=== PATIENT | male | born 1995 | race Caucasian/White ===

== ENCOUNTER 2017-03-15 10:25 | Emergency (ER) | payer BC, OTHER ==
[~2017-03-15] VITALS: Ht 185.4 cm; Wt 101.6 kg
[2017-03-15] MEDS ORDERED: IBUP-1780 PO (11:19)
[2017-03-15 12:06] LABS: BASOPHILS % (AUTO) 0 % (0-10); EOSINOPHILS % (AUTO) 0 % (0-10); HEMATOCRIT 43 % (40-54); HEMOGLOBIN 15.6 G/DL (13.3-17.7); LYMPHOCYTES # (AUTO) 1.3 X 10^3 (1.0-4.0); LYMPHOCYTES % (AUTO) 8 % (12-44); MEAN CORPUSCULAR HEMOGLOBIN 33 PG (25-34); MEAN CORPUSCULAR HGB CONC 36 G/DL (32-36); MEAN CORPUSCULAR VOLUME 91 FL (80-99); MEAN PLATELET VOLUME 9.5 FL (7.4-10.4); MONOCYTES # (AUTO) 1.5 X 10^3 (0.0-1.0); MONOCYTES % (AUTO) 10 % (0-12); NEUTROPHILS # (AUTO) 12.4 X 10^3 (1.8-7.8); NEUTROPHILS % (AUTO) 82 % (42-75); PLATELET COUNT 284 10^3/uL (130-400); RED BLOOD COUNT 4.73 10^6/uL (4.35-5.85); RED CELL DISTRIBUTION WIDTH 12.7 % (10.0-14.5); WHITE BLOOD COUNT 15.1 10^3/uL (4.3-11.0)
[2017-03-15] MEDS ORDERED: NS IV 1000 ML 1,000 ML IV ONE (12:15)
[2017-03-15] MEDS ORDERED: fentaNYL INJECTION 100 MCG/2 ML AMP IVP STA (12:20)
[2017-03-15] MEDS ORDERED: DEXAMETHASONE PF 10 MG/ML (DECADRON) VIAL IV STA (12:20)
[2017-03-15 12:25] LABS: BAND NEUTROPHILS 1 %; BASOPHILS % (MANUAL) 0 %; EOSINOPHILS % (MANUAL) 0 %; LYMPHOCYTES % (MANUAL) 9 %; MONOCYTES % (MANUAL) 11 %; NEUTROPHILS % (MANUAL) 79 %; RBC MORPH NORMAL
[2017-03-15] MEDS ORDERED: DEXAMETHASONE 10 MG/ML (DECADRON) 1 ML VIAL ONE (12:25)
[2017-03-15 12:28] LABS: ALANINE AMINOTRANSFERASE 24 U/L (0-55); ALBUMIN 4.3 GM/DL (3.2-4.5); ALKALINE PHOSPHATASE 74 U/L (40-136); BILIRUBIN,TOTAL 1.5 MG/DL (0.1-1.0); BUN/CREATININE RATIO 10; CALCIUM 9.7 MG/DL (8.5-10.1); CARBON DIOXIDE 25 MMOL/L (21-32); CHLORIDE 102 MMOL/L (98-107); CREATININE SERUM 1.03 MG/DL (0.60-1.30); GFR ESTIMATED > 60; GLUCOSE 105 MG/DL (70-105); POTASSIUM 4.1 MMOL/L (3.6-5.0); SODIUM 138 MMOL/L (135-145); TOTAL PROTEIN 7.6 GM/DL (6.4-8.2)
[2017-03-15] MEDS ORDERED: CEFUROXIME IV ONE (12:30)
[2017-03-15] MEDS ORDERED: D5W IV ONE (12:30)
[2017-03-15] MEDS ORDERED: HYDROcodone/APAP 7.5 MG/325 MG (LORTAB, LORCET PLUS) TABLET PO STA (13:27)
[2017-03-15] MEDS ORDERED: PRD20T PO ×3 (13:35→13:45)
[2017-03-15] MEDS ORDERED: CEFU250T80 PO ×2 (13:35→13:45)
--- NOTE | 2017-03-15 13:37 | ED EENT ---
History of Present Illness General Chief Complaint: Oral/Throat Problems Stated Complaint: SORE THROAT/SWOLLEN TONSILS Nursing Triage Note: PT REPORTS SORE THROAT SINCE YESTERDAY. REPORTS ALLERGIES/CONGESTION X 1 WEEK. PT REPORTS PAIN IS TOO INTENSE HE CANNOT DRINK LIQUIDS. PT STATES HE WAS [facility] YESTERDAY AND TODAY AND WAS GIVEN A SHOT OF PENICILLIN. HE WAS TESTED FOR STREP AND FLU BOTH WERE NEGATIVE. History of Present Illness Date Seen by Provider: Mar 15, 2017 Time Seen by Provider: 11:45 Initial Comments 21-year-old male presents for throat pain. He was evaluated at [facility]in [facility] yesterday and today. He was given Rocephin IM yesterday. He was tested for strep and influenza, he reports both to be negative. This was verified with the staff at the clinic. He is having extreme difficulty swallowing secondary to the pain. He took one hydrocodone at approximately 2 AM this morning, he is unsure of the dose. He denies any previous history of sore throat or recent strep infections. He did have his wisdom teeth taken out in [place] approximately 3 weeks ago. Timing/Duration: gradual, yesterday Severity: severe Prearrival Treatment: no prearrival treatment Associated Symptoms: nasal congestion/drainage, poor fluid intake, poor solids intake, sore throat Allergies and Home Medications Allergies Coded Allergies: No Known Drug Allergies (Unverified , 03/15/17) Home Medications Cefuroxime Axetil 250 Mg Tablet, 250 MG PO BID, #20 Ref 0 Prescribed by: CALIXTO JULIAN on 03/15/17 1345 Hydrocodone/Acetaminophen 1 Each Tablet, 1-2 EACH PO Q6H, #20 Ref 0 Prescribed by: CALIXTO JULIAN on 03/15/17 1346 Ibuprofen 800 Mg Tablet, 800 MG PO Q8H PRN for PAIN, (Reported) Prednisone 20 Mg Tab, 20 MG PO DAILY, #18 Ref 0 take in morning. 3 tablets daily for 3 days, 2 tablets daily for 3 days, then 1 tablet daily for 3 days. Prescribed by: CALIXTO JULINA on 03/15/17 1345 Review of Systems Constitutional: no symptoms reported, see HPI Throat: see HPI, pain, painful swallowing, difficulty with fluids Respiratory: no symptoms reported, see HPI Gastrointestinal: no symptoms reported, see HPI, No diarrhea, No loss of appetite, No nausea, No vomiting All Other Systems Reviewed Negative Unless Noted: Yes Past Rbhtims-Jlmgaa-Qonrze Hx Patient Social History Alcohol Use: Regular Use Alcohol Beverage of Choice: Beer Recreational Drug Use: No Smoking Status: Former Smoker Former Smoker, Quit: Feb 15, 2017 Recent Foreign Travel: No Contact w/Someone Who Travel: No Recent Infectious Disease Expo: No Physical Abuse: No Sexual Abuse: No Mistreated: No Fear: No Psychosocial Suicide Risk Score: 0 Reviewed Nursing Assessment Reviewed/Agree w Nursing PMH: Yes Physical Exam Vital Signs Vital Sign - Last 12Hours 03/15/17 11:11 Temp 98.2 Pulse 104 Resp 18 B/P (MAP) 130/91 (104) Pulse Ox 97 General Appearance: WD/WN Eyes: bilateral eye normal inspection, bilateral eye PERRL, bilateral eye EOMI Ears: bilateral ear auricle normal, bilateral ear canal normal, bilateral ear TM normal Nose: normal inspection, No discharge, No sinus tenderness Mouth/Throat: No dental tenderness, No excessive drooling, No mandibular swelling, tonsillar swelling (right, 3+. Left 1+. Uvula midline. ), No uvula swelling Neck: non-tender, full range of motion, supple, lymphadenopathy (R) Cardiovascular: normal peripheral pulses, regular rate, rhythm Respiratory: chest non-tender, lungs clear, normal breath sounds Gastrointestinal: normal bowel sounds, non tender, soft, No guarding, No rebound, No tenderness Neurologic/Psychiatric: no motor/sensory deficits, alert, normal mood/affect, oriented x 3 Skin: normal color, warm/dry Progress/Results/Core Measures Results/Orders Lab Results Laboratory Tests Test 03/15/17 11:48 03/15/17 11:56 Range/Units Group A Streptococcus Screen NEGATIVE NEGATIVE White Blood Count 15.1 H 4.3-11.0 10^3/uL Red Blood Count 4.73 4.35-5.85 10^6/uL Hemoglobin 15.6 13.3-17.7 G/DL Hematocrit 43 40-54 % Mean Corpuscular Volume 91 80-99 FL Mean Corpuscular Hemoglobin 33 25-34 PG Mean Corpuscular Hemoglobin Concent 36 32-36 G/DL Red Cell Distribution Width 12.7 10.0-14.5 % Platelet Count 284 130-400 10^3/uL Mean Platelet Volume 9.5 7.4-10.4 FL Neutrophils (%) (Auto) 82 H 42-75 % Lymphocytes (%) (Auto) 8 L 12-44 % Monocytes (%) (Auto) 10 0-12 % Eosinophils (%) (Auto) 0 0-10 % Basophils (%) (Auto) 0 0-10 % Neutrophils # (Auto) 12.4 H 1.8-7.8 X 10^3 Lymphocytes # (Auto) 1.3 1.0-4.0 X 10^3 Monocytes # (Auto) 1.5 H 0.0-1.0 X 10^3 Eosinophils # (Auto) 0.0 0.0-0.3 10^3/uL Basophils # (Auto) 0.0 0.0-0.1 10^3/uL Neutrophils % (Manual) 79 % Lymphocytes % (Manual) 9 % Monocytes % (Manual) 11 % Eosinophils % (Manual) 0 % Basophils % (Manual) 0 % Band Neutrophils 1 % Blood Morphology Comment NORMAL Sodium Level 138 135-145 MMOL/L Potassium Level 4.1 3.6-5.0 MMOL/L Chloride Level 102 98-107 MMOL/L Carbon Dioxide Level 25 21-32 MMOL/L Anion Gap 11 5-14 MMOL/L Blood Urea Nitrogen 10 7-18 MG/DL Creatinine 1.03 0.60-1.30 MG/DL Estimat Glomerular Filtration Rate > 60 BUN/Creatinine Ratio 10 Glucose Level 105 70-105 MG/DL Calcium Level 9.7 8.5-10.1 MG/DL Total Bilirubin 1.5 H 0.1-1.0 MG/DL Aspartate Amino Transf (AST/SGOT) 14 5-34 U/L Alanine Aminotransferase (ALT/SGPT) 24 0-55 U/L Alkaline Phosphatase 74 40-136 U/L C-Reactive Protein High Sensitivity 20.15 H 0.00-0.50 MG/DL Total Protein 7.6 6.4-8.2 GM/DL Albumin 4.3 3.2-4.5 GM/DL Monoscreen NEGATIVE NEGATIVE My Orders Orders - CALIXTO JULIAN Cbc With Automated Diff (03/15/17 11:53) Comprehensive Metabolic Panel (03/15/17 11:53) Hs C Reactive Protein (03/15/17 11:53) Monotest (03/15/17 11:53) Rapid Strep A Screen (03/15/17 11:53) Throat Culture (03/15/17 11:53) Manual Differential (03/15/17 11:56) Saline Lock/Iv-Start (03/15/17 12:15) Ns Iv 1000 Ml (Sodium Chloride 0.9%) (03/15/17 12:15) Dexamethasone Pf Injection (Decadron Pf (03/15/17 12:20) Fentanyl Injection (Sublimaze Injection (03/15/17 12:20) Cefuroxime Injection (Zinacef Injection) (03/15/17 12:30) Dexamethasone Injection (Decadron Inject (03/15/17 12:25) Hydrocodone/Apap 7.5/325 Tab (Lortab 7. (03/15/17 13:27) Medications Given in ED Current Medications Medications Dose Ordered Sig/Mary Route Start Time Stop Time Status Last Admin Dose Admin Cefuroxime Sodium 1500 mg/Dextrose/ Water 50 ml @ 100 mls/hr ONCE ONCE IV 03/15/17 12:30 03/15/17 12:59 DC 03/15/17 12:39 100 MLS/HR Dexamethasone Sodium Phosphate 10 mg STK-MED ONCE .ROUTE 03/15/17 12:25 03/15/17 12:27 DC 03/15/17 12:32 10 MG Sodium Chloride 1,000 ml @ 0 mls/hr Q0M ONCE IV 03/15/17 12:15 03/15/17 12:16 DC 03/15/17 12:30 0 MLS/HR Vital Signs/I&O Vital Sign - Last 12Hours 03/15/17 11:11 Temp 98.2 Pulse 104 Resp 18 B/P (MAP) 130/91 (104) Pulse Ox 97 Blood Pressure Mean: 104 Progress Note : Time: 11:45 Progress Note Initial evaluation completed, verified with [facility] that he was influenza and strep negative. Recommended CBC, CMP, mono, CRP, and throat culture. Normal saline, 1 L IV. Fentanyl 25 g IV for pain. 1200 spoke with Jimbo Hassan APRN, by phone. Recommended cefuroxime 1.5 g IV and Decadron 10 mg IV. They would be happy to follow the patient in the clinic tomorrow. 1230 patient reports minimal relief of pain. He is taking ice chips with no difficulty swallowing. Pedialyte provided. Labs essentially normal with elevated white count 15.1; CRP 20. [place] and strep negative. 1245 patient taking Pedialyte with no difficulty. 1315 hydrocodone/APAP 7.5/325 mg for pain. 1330 patient able to swallow pain medication with no difficulty. Instructed on importance of maintaining adequate oral intake, to avoid dehydration. Discharge instructions and return precautions reviewed with patient. He will follow-up at Dr. Peralta's office tomorrow. All questions answered. Departure Impression Impression: Primary Impression: Tonsillar abscess Disposition: HOME, SELF-CARE Condition: Improved Departure-Patient Inst. Decision time for Depature: 13:45 Referrals: NO,LOCAL PHYSICIAN (PCP/Family) Primary Care Physician Patient Instructions: Peritonsillar Abscess, Adult (DC) Add. Discharge Instructions: Take antibiotic and prednisone as prescribed. Warm salt water gargles every 2 hours. Use the hydrocodone pain medication as needed per prescription. May also continue using ibuprofen 800 mg every 8 hours with food. Increase fluid intake, aim for 16 ounces every 2 hours, while awake. Pedialyte 1 -2 cups every 4 hours. Eat Jello and broth. Try soft foods, as tolerated. Follow up at [facility] office on , 11:15 am. You can also follow up at [facility]. Return to emergency department if unable to tolerate any fluids, fever greater than 101, difficulty breathing, inability to swallow, or new problems. All discharge instructions reviewed with patient and/or family. Voiced understanding. Scripts Hydrocodone/Acetaminophen (Hydrocodon-Acetaminoph 7.5-325) 1 Each Tablet 1-2 EACH PO Q6H, #20 TAB 0 Refills Prov: CALIXTO JULIAN 03/15/17 Prednisone (Prednisone) 20 Mg Tab 20 MG PO DAILY, #18 TAB 0 Refills take in morning. 3 tablets daily for 3 days, 2 tablets daily for 3 days, then 1 tablet daily for 3 days. Prov: CALIXTO JULIAN 03/15/17 Cefuroxime Axetil (Cefuroxime) 250 Mg Tablet 250 MG PO BID, #20 TAB 0 Refills Prov: CALIXTO JULIAN 03/15/17 Work/School Note: School/Childcare Release Date Seen in the Emergency Department: Mar 15, 2017 Time Dismissed from Emergency Department: 14:00 Return to School: Mar 17, 2017 Restrictions: No Restrictions Copy Copies To 1: LATHA TENA MD Copies To 2: KARAN HASSAN; LANDY CAMPO APRN, AMY ARNP Mar 15, 2017 13:37
[2017-03-15] MEDS ORDERED: HYDR-3816 PO (13:46)
[2017-03-15 13:59] VITALS: BP 130/78
== END 2017-03-15 13:59 | disposition home or self-care (01) ==
LOC: ER 10:29
DX: J36 Peritonsillar abscess (principal); Z87.891 Personal history of nicotine dependence
CPT/HCPCS: 36415; 80053; 85007; 85027; 86141; 86308; 87070; 87430; 96361; 96365; 96375

== ENCOUNTER 2018-01-02 10:46 | Emergency (ER) | payer BC, OTHER ==
[~2018-01-02] VITALS: Ht 188 cm; Wt 113.4 kg
[~2018-01-02 10:46] MED LIST: CEFU250T80 PO; HYDR-34 PO; IBUP-1780 PO; PRD20T PO
[2018-01-02] MEDS ORDERED: PSEU120T17 PO (11:47)
[2018-01-02] MEDS ORDERED: ACET-789 PO (11:47)
[2018-01-02] MEDS ORDERED: CEFU500T63 PO (11:47)
--- NOTE | 2018-01-02 11:47 | ED Cough/URI ---
General Chief Complaint: Respiratory Problems Stated Complaint: COUGH Nursing Triage Note: Pt reports cough/congestion for a couple months. Pt has been treated by [facility] and given inhalers, sudafed, antihistamines, and steroids w/ no relief. Pt reports continued congestion and constant cough, worse at night. Source: patient Exam Limitations: no limitations History of Present Illness Date Seen by Provider: Jan 02, 2018 Time Seen by Provider: 11:44 Initial Comments To ER per private vehicle with a 2 month history of intermittently productive cough. He has seen [facility] and has been given steroids which did temporarily help. He is also using TheraFlu [id number] with minimal improvement. He has persistent nasal congestion and was unable to sleep at all last night due to the coughing. Timing/Duration: constant Severity/Quality: moderate Associated Symptoms: cough Allergies and Home Medications Allergies Coded Allergies: No Known Drug Allergies (Unverified , 03/15/17) Home Medications Cefuroxime Axetil 250 Mg Tablet, 250 MG PO BID Prescribed by: CALIXTO JULIAN on 03/15/17 1345 Hydrocodone Bit/Acetaminophen 1 Each Tablet, 1-2 EACH PO Q6H Prescribed by: CALIXTO JULIAN on 03/15/17 1346 Ibuprofen 800 Mg Tablet, 800 MG PO Q8H PRN for PAIN, (Reported) Prednisone 20 Mg Tab, 20 MG PO DAILY take in morning. 3 tablets daily for 3 days, 2 tablets daily for 3 days, then 1 tablet daily for 3 days. Prescribed by: CALIXTO JULIAN on 03/15/17 1345 Patient Home Medication List Home Medication List Reviewed: Yes Review of Systems Review of Systems Constitutional: see HPI; No chills, No fever EENTM: see HPI, nose congestion Respiratory: see HPI, cough Cardiovascular: no symptoms reported Genitourinary: no symptoms reported Musculoskeletal: no symptoms reported Skin: no symptoms reported Psychiatric/Neurological: No Symptoms Reported Past Jnomslk-Mlrhkf-Bfldff Hx Patient Social History Alcohol Use: Regular Use Number of Drinks Today: AA Alcohol Beverage of Choice: Beer Recreational Drug Use: No Type Used: Cigarettes Former Smoker, Quit: Feb 15, 2017 Recent Foreign Travel: No Contact w/Someone Who Travel: No Recent Infectious Disease Expo: No Recent Hopitalizations: No Seasonal Allergies Seasonal Allergies: No Past Medical History Surgeries: Yes (WISDOM TEETH) Respiratory: No Cardiac: No Neurological: No Genitourinary: No Gastrointestinal: No Musculoskeletal: No Endocrine: No HEENT: No Cancer: No Psychosocial: No Integumentary: No Blood Disorders: No Physical Exam Vital Signs - First Documented 01/02/18 11:18 Temp 98.3 Pulse 82 Resp 18 B/P (MAP) 118/70 (86) Pulse Ox 94 O2 Delivery Room Air Capillary Refill : Less Than 3 Seconds Height: 6'2.00" Weight: 250lbs. oz. 113.263953xe; BMI Method:Stated General Appearance: WD/WN, no apparent distress Eyes: Bilateral Eye Normal Inspection, Bilateral Eye PERRL, Bilateral Eye EOMI HEENT: PERRL/EOMI, normal ENT inspection Neck: non-tender, full range of motion Respiratory: no respiratory distress, no accessory muscle use Cardiovascular: regular rate, rhythm, no murmur Gastrointestinal: normal bowel sounds, non tender, soft Extremities: normal range of motion, non-tender Neurologic/Psychiatric: alert, normal mood/affect, oriented x 3 Skin: normal color, warm/dry Progress/Results/Core Measures Suspected Sepsis Recent Fever Within 48 Hours: No Infection Criteria Present: Suspected New Infection New/Unexplained Altered Menta: No Sepsis Screen: No Definite Risk SIRS Temperature:98.3 Pulse: 82 Respiratory Rate: 18 Blood Pressure 118 /70 Mean: 86 Results/Orders My Orders Orders - MIKA BURTON APRN Chest Pa/Lat (2 View) (01/02/18 11:43) Vital Signs/I&O 01/02/18 11:18 Temp 98.3 Pulse 82 Resp 18 B/P (MAP) 118/70 (86) Pulse Ox 94 O2 Delivery Room Air Capillary Refill : Less Than 3 Seconds Blood Pressure Mean: 86 Departure Impression Primary Impression: Bronchitis Disposition: 01 HOME, SELF-CARE Condition: Stable Departure-Patient Inst. Decision time for Depature: 11:45 Referrals: NO,LOCAL PHYSICIAN (PCP/Family) Primary Care Physician Patient Instructions: Acute Bronchitis, Adult (DC) Add. Discharge Instructions: 1. Cough medication as directed 2. Return to ER for any concerns 3. All discharge instructions reviewed with patient and/or family. Voiced understanding. Scripts Pseudoephedrine HCl (Sudafed 12 Hour) 120 Mg Tablet.er 120 MG PO BID PRN for CONGESTION, #20 TAB Prov: MIKA BURTON APRN 01/02/18 Acetaminophen with Codeine (Tylenol with Codeine #3 Tablet) 1 Each Tablet 1 EACH PO Q4H PRN for COUGH, #20 TAB Prov: MIKA BURTON APRN 01/02/18 Cefuroxime Axetil (Cefuroxime) 500 Mg Tablet 500 MG PO BID, #14 TAB Prov: MIKA BURTON APRN 01/02/18 Work/School Note: Work Release Form Date Seen in the Emergency Department: Jan 02, 2018 Return to Work: Jan 04, 2018 MIKA BURTON APRN Jan 02, 2018 11:47
--- NOTE | 2018-01-02 11:59 | Diagnostic Imaging Report ---
INDICATION: Cough FINDINGS: The lungs are clear. The heart and vessels normal. No effusion or pneumothorax. IMPRESSION: No acute appearing abnormality. Dictated by: Dictated on workstation # [id number]
[2018-01-02 12:02] VITALS: BP 118/70
--- OUTSIDE RECORDS SUMMARY | 2018-01-02 12:15 | XMS REPORT ---
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 Name Role Phone FAVIAN LICEA Unavailable PROBLEMS Unknown Problems ALLERGIES No Known Allergies ENCOUNTERS Encounter Location Date Diagnosis [facility] [address] [facility] [id number] [address] Nov, Penile discharge R36.9 and High risk sexual behavior Z72.51 IMMUNIZATIONS Vaccine Route Administration Date Status ROCEPHIN 250 MG (IM) IM Intramuscular Dec 19, 2017 Administered SOCIAL HISTORY Never Assessed REASON FOR VISIT STD check- penis pain and discharge [facility] Activity Details Follow Up pending testing or as needed Reason: VITAL SIGNS Height 74 in 2017-12-19 Weight 257.0 lbs 2017-12-19 Temperature 97.3 degrees Fahrenheit 2017-12-19 Heart Rate 78 bpm 2017-12-19 Respiratory Rate 20 2017-12-19 BMI 32.99 kg/m2 2017-12-19 Blood pressure systolic 124 mmHg 2017-12-19 Blood pressure diastolic 80 mmHg 2017-12-19 MEDICATIONS Medication Instructions Dosage Frequency Start Date End Date Duration Status Zithromax 500 mg Orally Once a day 2 tablets 24h Nov, Nov, 1 dose Active RESULTS No Results PROCEDURES Procedure Date Ordered Result Body Site CHYLMD TRACH, DNA, AMP PROBE Dec 19, 2017 N.GONORRHOEAE, DNA, AMP PROB Dec 19, 2017 THER/PROPH/DIAG INJ, SC/IM Dec 19, 2017 ROCEPHIN 250 MG (IM) Dec 19, 2017 HIV-1 AG W/HIV-1 & HIV-2 AB Dec 19, 2017 BLOOD SEROLOGY, QUALITATIVE Dec 19, 2017 ACUTE HEPATITIS PANEL Dec 19, 2017 INSTRUCTIONS MEDICATIONS ADMINISTERED No Known Medications MEDICAL (GENERAL) HISTORY Type Description Date Surgical History wisdom teeth extraction 02/2017
== END 2018-01-02 12:02 | disposition home or self-care (01) ==
LOC: EDUNIT# 10:46 → ER 10:47
DX: J40 Bronchitis, not specified as acute or chronic (principal); Z79.52 Long term (current) use of systemic steroids; Z77.22 Contact with and (suspected) exposure to environmental tobacco smoke (acute) (chronic)
CPT/HCPCS: 71046

== ENCOUNTER 2018-04-02 11:59 | Emergency (ER) | payer BC, OTHER ==
[~2018-04-02] VITALS: Ht 188 cm; Wt 115.2 kg
[~2018-04-02 11:59] MED LIST changes: +ACET-789 PO; +CEFU500T63 PO; +PSEU120T17 PO
--- OUTSIDE RECORDS SUMMARY | 2018-04-02 12:03 | XMS REPORT ---
Author Author SAUMYA HOFFMAN Organization [facility] Address [address] [place] [address] Care Team Providers Care Scientific Research Associate Name Role Phone SAUMYA HOFFMAN Unavailable PROBLEMS Unknown Problems ALLERGIES No Known Allergies ENCOUNTERS Encounter Location Date Diagnosis [facility] [address] [facility] [id number] [address] Jan, Herpes B00.9 ; Dysuria R30.0 and Possible exposure to STD Z20.2 [facility] [address] [place] [id number] [place] [phone] Nov, Penile discharge R36.9 and High risk sexual behavior Z72.51 IMMUNIZATIONS No Known Immunizations SOCIAL HISTORY Never Assessed REASON FOR VISIT Pelvic area pain; painful urination, bump on side of penile shaft - JAMMIE Luna PLAN OF CARE Activity Details Follow Up prn Reason: Pending Test GC/CHLAM URINE (STATE) Pending Test SYPHILIS (STATE) VITAL SIGNS Height 74 in 2018-01-25 Weight 260 lbs 2018-01-25 Temperature 97.3 degrees Fahrenheit 2018-01-25 Heart Rate 88 bpm 2018-01-25 Respiratory Rate 18 2018-01-25 BMI 33.38 kg/m2 2018-01-25 Blood pressure systolic 114 mmHg 2018-01-25 Blood pressure diastolic 90 mmHg 2018-01-25 MEDICATIONS Medication Instructions Dosage Frequency Start Date End Date Duration Status Acyclovir 800 MG Orally Five times a day 1 tablet Jan, 10 day (s) Active RESULTS Name Result Date Reference Range UA LONG DIP (IN HOUSE) 2018-01-25 Lot # [id number] Exp date 08/2018 Clarity clear Color yellow Odor none GLU negative SANJUANA negative KET negative SG 1.020 BLO negative pH 8.5 Protein negative URO 0.2 NIT negative IGOR negative Lot # [id number] Exp date 01/2018 PROCEDURES Procedure Date Ordered Result Body Site URINALYSIS, AUTO, W/O SCOPE Jan 25, 2018 No Charge Jan 25, 2018 HERPES SIMPLEX TEST Jan 25, 2018 HERPES SIMPLEX TYPE 2 Jan 25, 2018 VENIPUNCT, ROUTINE* Jan 25, 2018 INSTRUCTIONS MEDICATIONS ADMINISTERED No Known Medications MEDICAL (GENERAL) HISTORY Type Description Date Surgical History wisdom teeth extraction 02/2017
[2018-04-02 12:43] LABS: BASOPHILS % (AUTO) 1 % (0-10); EOSINOPHILS # (AUTO) 0.2 10^3/uL (0.0-0.3); EOSINOPHILS % (AUTO) 3 % (0-10); HEMATOCRIT 45 % (40-54); HEMOGLOBIN 16.5 G/DL (13.3-17.7); LYMPHOCYTES # (AUTO) 1.9 X 10^3 (1.0-4.0); LYMPHOCYTES % (AUTO) 32 % (12-44); MEAN CORPUSCULAR HEMOGLOBIN 34 PG (25-34); MEAN CORPUSCULAR HGB CONC 37 G/DL (32-36); MEAN CORPUSCULAR VOLUME 92 FL (80-99); MEAN PLATELET VOLUME 9.6 FL (7.4-10.4); MONOCYTES # (AUTO) 0.5 X 10^3 (0.0-1.0); MONOCYTES % (AUTO) 9 % (0-12); NEUTROPHILS # (AUTO) 3.3 X 10^3 (1.8-7.8); NEUTROPHILS % (AUTO) 56 % (42-75); PLATELET COUNT 289 10^3/uL (130-400); RED CELL DISTRIBUTION WIDTH 14.4 % (10.0-14.5); WHITE BLOOD COUNT 5.9 10^3/uL (4.3-11.0)
[2018-04-02 12:58] LABS: BILIRUBIN,URINE NEGATIVE (NEGATIVE); CLARITY,URINE CLEAR; COLOR,URINE YELLOW; GLUCOSE, URINE (UA) NEGATIVE (NEGATIVE); KETONES,URINE NEGATIVE (NEGATIVE); LEUKOCYTE ESTERASE ,URINE NEGATIVE (NEGATIVE); NITRITE,URINE NEGATIVE (NEGATIVE); PH,URINE 8 (5-9); PROTEIN,URINE NEGATIVE (NEGATIVE); UROBILINOGEN,URINE NORMAL (NORMAL)
[2018-04-02] MEDS ORDERED: CATHETER FLUSH 10 ML SYR IV PRN (13:00)
[2018-04-02] MEDS ORDERED: IOHEXOL 350 MG/ML 100 ML (OMNIPAQUE 350) VIAL IV ONE (13:00)
[2018-04-02] MEDS ORDERED: RECEIVED CONTRAST (Hold Metformin) IV SCH (13:00)
[2018-04-02] MEDS ORDERED: NS 100 ML (IVPB) BAG IV ONE (13:00)
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
[2018-04-02 13:01] LABS: ALANINE AMINOTRANSFERASE 60 U/L (0-55); ALBUMIN 4.5 GM/DL (3.2-4.5); ALKALINE PHOSPHATASE 83 U/L (40-136); BILIRUBIN,TOTAL 1.6 MG/DL (0.1-1.0); BUN/CREATININE RATIO 10; CALCIUM 9.6 MG/DL (8.5-10.1); CARBON DIOXIDE 22 MMOL/L (21-32); CHLORIDE 105 MMOL/L (98-107); CREATININE SERUM 0.99 MG/DL (0.60-1.30); GFR ESTIMATED > 60; GLUCOSE 99 MG/DL (70-105); POTASSIUM 4.3 MMOL/L (3.6-5.0); SODIUM 139 MMOL/L (135-145); TOTAL PROTEIN 7.1 GM/DL (6.4-8.2)
[2018-04-02 13:10] LABS: BACTERIA,URINE TRACE /HPF
--- NOTE | 2018-04-02 13:34 | Diagnostic Imaging Report ---
PROCEDURE: CT abdomen and pelvis without contrast. TECHNIQUE: Multiple contiguous axial images were obtained through the abdomen and pelvis without the use of intravenous contrast. INDICATION: Left lower quadrant pain. CORRELATION STUDY: None. FINDINGS: Examination limited by lack of intravenous and gastrointestinal contrast. LOWER THORAX: Clear. LIVER: Unremarkable. GALLBLADDER: Present and unremarkable. No bile duct dilatation. SPLEEN: Unremarkable. PANCREAS: Unremarkable. ADRENAL GLANDS: Unremarkable. KIDNEYS: Normal configuration. No calcification or obstruction. ABDOMINAL AORTA: Unremarkable, nonaneurysmal. A few small, non-pathologically enlarged central retroperitoneal and scattered mesenteric lymph nodes are present. GASTROINTESTINAL TRACT: No obstruction. Normal appendix appears to be present in the right lower quadrant. There is suggestion of very mild, faint haziness of the pericolonic fat adjacent to the distal descending colon. No definitive inflamed diverticulum. No significant fecal impaction. No abdominal ascites or free air. URINARY BLADDER: Relatively decompressed. Slight bump-like contour about the anterior bladder is present and could be reflective of very small urachal remnant. REPRODUCTIVE: Unremarkable. OSSEOUS STRUCTURES: Mild broad-based disc bulge at the L5-S1 and L4-L5 levels. Slight foraminal narrowing present. OTHER: None. IMPRESSION: 1. While fairly mild, there is suggestion of slight inflammatory changes in the pericolonic fat of the distal colon. This can be associated with underlying epiploic appendagitis. Definitive inflamed diverticulum to suggest diverticulitis or otherwise acute abnormality is not suggested. Dictated by: Dictated on workstation # [id number]
[2018-04-02] MEDS ORDERED: AMOX-358 PO (13:38)
[2018-04-02 13:57] VITALS: BP 135/79
== END 2018-04-02 13:45 | disposition home or self-care (01) ==
LOC: EDUNIT# 11:59 → ER 12:00
DX: K65.9 Peritonitis, unspecified (principal); Z79.52 Long term (current) use of systemic steroids; Z87.891 Personal history of nicotine dependence
CPT/HCPCS: 36415; 74176; 80053; 81000; 85025

== ENCOUNTER 2018-06-17 11:04 | Emergency (ER) | payer BC, OTHER ==
[~2018-06-17] VITALS: Ht 185.4 cm; Wt 113.4 kg
[~2018-06-17 11:04] MED LIST changes: +AMOX-358 PO
[2018-06-17] MEDS ORDERED: KETOROLAC 60 MG/2 ML VIAL IM ONE (11:30)
[2018-06-17] MEDS ORDERED: CYCLOBENZAPRINE 10 MG (FLEXERIL) TAB PO SCH (11:30)
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
--- NOTE | 2018-06-17 11:50 | Diagnostic Imaging Report ---
Indication: Pain: Findings: There is a subtle lucency involving the lateral margin of the superior tip of the fibular head. This appears fairly well corticated and this may be incomplete fusion of the apophysis. There is no overlying soft tissue swelling and the patient's pain is reported medial and separable from that site however would suggest correlate correlation with any focal tenderness at that level. As an incomplete avulsion could not be absolutely excluded. Again this felt more likely chronic and incidental. Remaining osseous structures were normal. The joint spaces maintained. No findings of a joint effusion and no loose body. IMPRESSION: No acute finding revealed, subtle lucency fairly well-corticated superior/distal tip of the fibular head along its lateral margin of uncertain significance but likely incidental. Correlate however for any focal tenderness at that level to exclude incomplete nondisplaced avulsive type injury. Dictated by: Dictated on workstation # [id number]
--- NOTE | 2018-06-17 11:51 | Diagnostic Imaging Report ---
INDICATION: Pain. FINDINGS: Two view right hip showed no fracture or dislocation. Obturator ring and symphysis intact. The right SI joint grossly unremarkable. No acute finding. IMPRESSION: No fracture, avulsion or other acute pathology identified. Dictated by: Dictated on workstation # [id number]
[2018-06-17] MEDS ORDERED: ACHD5005 PO (12:03)
[2018-06-17] MEDS ORDERED: CYCL10TA9 PO (12:03)
[2018-06-17 12:13] VITALS: BP 123/78
== END 2018-06-17 12:13 | disposition home or self-care (01) ==
LOC: EDUNIT# 11:04 → ER 11:05
DX: S73.101A Unspecified sprain of right hip, initial encounter (principal); S83.91XA Sprain of unspecified site of right knee, initial encounter; Z79.52 Long term (current) use of systemic steroids; Z87.891 Personal history of nicotine dependence; W50.0XXA Accidental hit or strike by another person, initial encounter; Y93.72 Activity, wrestling
CPT/HCPCS: 73502; 73562